=== PATIENT | female | born 1940 | race Caucasian/White ===

== ENCOUNTER 2019-02-25 14:14 | Emergency (ER) | payer MEDICARE ==
[2019-02-25] MEDS ORDERED: KETOROLAC TROMETHAMINE 30 MG/1ML VIAL IV ONE (14:30)
[2019-02-25] MEDS ORDERED: ORPHENADRINE CITRATE 60 MG/2 ML ML IV ONE (14:30)
--- NOTE | 2019-02-25 14:42 | ED Physician Documentation ---
General Adult - HISTORIAN Historian: patient - HPI Stated Complaint: leg pain Chief Complaint: General Adult Additional Information: Patient presents to ED via EMS with worsening right leg/hip pain. Patient had a fall on 02/05/19. Xrays at that time showed degenerative changes. Patient was admitted for hyperglycemia during that ER visit. She has since been seen by Dr. Randolph who recommended total hip replacement for pain control but did not give pain medications secondary to increase fall risk. Today patient states her right hip pain was so intense she could not walk so she called EMS. Upon arrival patient was very agitated, verbally abusive and gave very little information. Once daughter arrived more information was gathered. Onset: days ago (21) Timing: still present, worse Severity: severe - ROS CONST: denies: fever EYES/ENT: none CVS/RESP: denies: chest pain, shortness of breath GI/: denies: vomiting, nausea MS/SKIN/LYMPH: leg pain. denies: calf pain, leg swelling, back pain NEURO/PSYCH: denies: headache - PAST HX Past History: COPD, hypertension Other History: diabetes Type 2 Surgeries/Procedures: other (right femoral karlene) - SOCIAL HX Smoking History: non-smoker Alcohol Use: none Drug Use: none - FAMILY HX Family History: No - VITAL SIGNS Vital Signs: Vital Signs Temp Pulse Resp BP Pulse Ox 98.8 F 98 H 207/74 99 02/25/19 14:20 02/25/19 14:20 02/25/19 14:20 02/25/19 14:20 02/25/19 14:20 - REVIEWED ASSESSMENTS Nursing Assessment Reviewed: Yes Vitals Reviewed: Yes <Maddie Delatorre - Last Filed: 02/25/19 14:53> - VITAL SIGNS Vital Signs: Vital Signs Temp Pulse Resp BP Pulse Ox 98.8 F 98 H 207/74 99 02/25/19 14:20 02/25/19 14:20 02/25/19 14:20 02/25/19 14:20 02/25/19 14:20 <Luan Cobb - Last Filed: 02/25/19 15:48> - PAST HX Allergies/Adverse Reactions: Allergies Allergy/AdvReac Type Severity Reaction Status Date / Time No Known Allergies Allergy Verified 02/25/19 14:24 Home Medications: Ambulatory Orders Medication Instructions Recorded Lisinopril 10 mg PO DAILY 02/25/19 Potassium Chloride [Klor-Con] 20 meq PO DAILY 02/25/19 metFORMIN HCl [Glucophage] 500 mg PO RT2017 02/25/19 Progress - Progress Progress: [address] Cobb, will transfer care to him. CT pelvis and labs pending. <Maddie Delatorre - Last Filed: 02/25/19 14:53> - Progress Progress: CT R hip: These are displaced right femoral neck fracture. 1 centimeter displacement is present. 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 Aortoiliac vascular calcification is present. Lumbar spondylosis the is present in the inferior lumbar spine. Internal fixation is present in the femur Impression: displaced right femoral neck fracture. Toradol 30 mg IV earlier in ER. Zofran 4 mg IV Morpine 4 mg IV Transfer to [facility]. Dr. Baorn. <Luan Cobb - Last Filed: 02/25/19 15:48> ED Results Lab/Radiology - Orders Orders: ED Orders Category Date Time Status Place IV Lock 1T Care 02/25/19 14:[address] PELVIS W/O CONTRAST Stat Exams 02/25/19 Ordered CBC/PLATELET/DIFF Routine Lab 02/25/19 Ordered CMP Routine Lab 02/25/19 Ordered Ketorolac Tromethamine [Toradol] Med 02/25/19 14:30 Discontinued 30 mg IV NOW ONE Orphenadrine Citrate [Norflex] Med 02/25/19 14:30 Discontinued 60 mg IV NOW ONE <Maddie Delatorre - Last Filed: 02/25/19 14:53> - Orders Orders: ED Orders Category Date Time Status Place IV Lock 1T Care 02/25/19 14:[address] PELVIS W/O CONTRAST Stat Exams 02/25/19 Completed CBC/PLATELET/DIFF Routine Lab 02/25/19 Ordered CMP Routine Lab 02/25/19 Ordered Ketorolac Tromethamine [Toradol] Med 02/25/19 14:30 Discontinued 30 mg IV NOW ONE Orphenadrine Citrate [Norflex] Med 02/25/19 14:30 Discontinued 60 mg IV NOW ONE <Luan Cobb - Last Filed: 02/25/19 15:48> General Adult Physical Exam - PHYSICAL EXAM GENERAL APPEARANCE: no distress EENT: SUSU NECK: supple RESPIRATORY: no resp distress, breath sounds normal CVS: reg rate & rhythm, heart sounds normal ABDOMEN: soft, non-tender BACK: normal inspection SKIN: warm/dry EXTREMITIES: edema (trace lower extremity edema bilaterally), tenderness (right groin, right lateral thigh) NEURO: oriented X3, motor nml, mood/affect nml <Maddie Delatorre - Last Filed: 02/25/19 14:53> - PHYSICAL EXAM EXTREMITIES: other (R lower extremity shortening) <Luan Cobb - Last Filed: 02/25/19 15:48> Discharge <Maddie Delatorre - Last Filed: 02/25/19 14:53> Decision to Admit: [id number] Decision Time: 15:41 <Luan Cobb - Last Filed: 02/25/19 15:48> Clincal Impression: R femoral neck fracture Referrals: Primary Doctor,No [Primary Care Provider] - Condition: Stable Disposition: XFER [facility]
--- NOTE | 2019-02-25 15:12 | Diagnostic Imaging Report ---
PATIENT MR#: [id number] PATIENT PATIENT NAME: CINDY GIRALDO DATE OF : 1940 REFERRING PHYSICIAN: Maddie Lewis EXAM DATE: 02/25/2019 ACCESSION NUMBER: [id number] EXAM DESCRIPTION: CT PELVIS W/O CONTRAST CT of the bony pelvis Clinical history right hip pain Comparison: Radiographs from February 06, 2019 Technique: Helical axial CT of the right right hip was performed with multiplanar reconstructions. Findings: These are displaced right femoral neck fracture. 1 centimeter displacement is present. Ther e is degenerative arthritis the hips and sacroiliac joints. Aortoiliac vascular calcification is present. Lumbar spondy losis the is present in the inferior lumbar spine. Internal fixation is present in the femur Impression displaced right femoral neck fracture Read by: Dr. Ludwig Trinidad Transcribed by: Transcribed Date: Electronically signed by: Dr. Ludwig Trinidad Date signed: 02/25/2019 3:11:55 PM
[2019-02-25] MEDS ORDERED: ONDANSETRON HCL/PF 4 MG/ 2ML VIAL ONE (15:13)
[2019-02-25] MEDS ORDERED: MORPHINE SULFATE 4 MG/ML VIAL ONE (15:13)
[2019-02-25] MEDS ORDERED: ONDANSETRON HCL/PF 4 MG/ 2ML VIAL IVP ONE (15:15)
[2019-02-25] MEDS ORDERED: MORPHINE SULFATE 4 MG/ML VIAL IV ONE (15:16)
[2019-02-25 15:35] LABS: BASOPHILS % 0.3 % (0.0-1.5); NEUTROPHILS # 4.7 # k/uL (1.4-7.7)
[2019-02-25 15:40] LABS: eGFR (Non-African) > 60
[2019-02-25 16:04] VITALS: BP 171/67
== END 2019-02-25 16:04 | disposition short-term general hospital (02) ==
LOC: ED 14:14
DX: S72.001A Fracture of unspecified part of neck of right femur, initial encounter for closed fracture (principal); W19.XXXA Unspecified fall, initial encounter
CPT/HCPCS: 72192; 80053; 85025; 96374; 96375; 99283; 99284; J1885; J2270; J2360; J2405; S1016

== ENCOUNTER 2019-04-01 11:10 | Emergency (ER) | payer MEDICARE ==
--- NOTE | 2019-04-01 11:49 | ED Physician Documentation ---
Upper Respiratory Symptoms - HISTORIAN Historian: patient - HPI Stated Complaint: CC, fever Chief Complaint: Cough/ Upper Respiratory Additional Information: Patient presents to ED with a 10 day history of cough and congestion, spiking a fever last night of 102.0. Dr. Randolph started patient on Azithromycin on and has 3 doses without improvement. Daughter reports patient's blood sugars have been trending up over the past 2 days, usually around 130, now running at 200. Onset: days ago (10) Duration: intermittent episodes Context: denies: recent foreign travel Severity: moderate Associated Symptoms: fever (102.0), productive cough, shortness of breath - ROS CONST/EYES: weakness CVS/RESP: shortness of breath LYMPH: denies: ankle swelling GI/: denies: abdominal pain, vomiting, nausea NEURO/PSYCH: denies: dizziness MS/SKIN: denies: muscle aches - PAST HX Lung Disease: COPD PE Risk Factors: hypertension Other History: diabetes Type 2 Allergies/Adverse Reactions: Allergies Allergy/AdvReac Type Severity Reaction Status Date / Time No Known Allergies Allergy Verified 04/01/19 11:38 Home Medications: Ambulatory Orders Medication Instructions Recorded Lisinopril 10 mg PO DAILY 02/25/19 Potassium Chloride [Klor-Con] 20 meq PO DAILY 02/25/19 metFORMIN HCl [Glucophage] 500 mg PO [id number] 02/25/19 Azithromycin 250 mg PO DAILY 04/01/19 Hydrocodone/Acetaminophen 1 tab PO Q6H PRN 04/01/19 [Hydrocodone-Acetamin 5-325 mg] - SOCIAL HX Smoking History: non-smoker Alcohol Use: none Drug Use: none - FAMILY HX Family History: none - VITAL SIGNS Vital Signs: Vital Signs Temp Pulse Resp BP Pulse Ox 99.8 F H 113 H 24 136/57 95 04/01/19 11:10 04/01/19 11:10 04/01/19 11:10 04/01/19 11:10 04/01/19 11:10 - REVIEWED ASSESSMENTS Nursing Assessment Reviewed: Yes Vitals Reviewed: Yes ED Results Lab/Radiology - Lab Results Lab Results: Lab Results 04/01/19 11:50 Influenza A (Rapid) Negative (NEGATIVE) Influenza B (Rapid) Negative (NEGATIVE) Influenza A/B - Negative. - Radiology Radiology Impressions: Report Submission Date: Apr 01, 2019 12:40:53 PM TELEGRAPH EDITOR Patient Study Name: CINDY GIRALDO Date: Apr 01, 2019 11:58:50 AM TELEGRAPH EDITOR Modality Type: DX Gender: F Description: CHEST 2VIEW : 38 Institution: [facility] Physician: LADI REYNOLDS Pa and lateral chest Clinical history : cough and congestion Comparison February 06, 2019 Technique pa and lateral upright Findings: Interstitial infiltrate present in the lungs greatest at the bases. Pulmonary vascular congestion increased. Cardiomegaly and aortic atherosclerosis the same. Lung carr are hyperinflated. There is thoracic spondylosis.. Impression: Congestive heart failure and interstitial edema Electronically signed on Apr 01, 2019 12:40:53 PM TELEGRAPH EDITOR by: Ludwig Trinidad - Orders Orders: ED Orders Category Date Time Status Place IV Lock 1T Care 04/01/19 13:03 Active CHEST 2VIEW [RAD] Stat Exams 04/01/19 Completed INFLUENZA A&B Stat Lab 04/01/19 11:50 Completed 0.9 % Sodium Chloride [Normal Saline] 100 ml Med 04/01/19 13:10 Discontinued IV .STK-MED Furosemide [Lasix] Med 04/01/19 13:03 Discontinued 40 mg IVP NOW ONE Ipratropium/Albuterol Sulfate [Duoneb] Med 04/01/19 11:47 Discontinued 3 ml NEB NOW ONE cefTRIAXone SODIUM [Rocephin] Med 04/01/19 13:10 Discontinued 2 gm .ROUTE .STK-MED ONE cefTRIAXone SODIUM [Rocephin] 2 gm Med 04/01/19 13:03 Discontinued 0.9 % Sodium Chloride [Normal Saline] 100 ml IV NOW Upper Respiratory Symptoms - EXAM General Appearance: no acute distress, alert EENT: nml ENT inspection Neck: supple Respiratory: no resp. distress, rhonchi (bilaterally) Abdomen: non-tender, nml bowel sounds CVS: reg rate & rhythm, heart sounds normal Skin: color nml, no rash, warm,dry Extremities: non-tender, edema Neuro/Psych: oriented x3, mood/affect nml Discharge Clincal Impression: Pneumonia Qualifiers: Pneumonia type: due to other aerobic Gram-negative bacteria Laterality: bilateral Lung location: lower lobe of lung Qualified Code(s): J15.6 - Pneumonia due to other Gram-negative bacteria Pulmonary edema Qualifiers: Chronicity: acute Qualified Code(s): J81.0 - Acute pulmonary edema Referrals: Primary Doctor,No [REFERRING] - 2 Days Additional Instructions: 1. Start Levaquin tomorrow. Take until gone. 2. Take Lasix daily for next 7 days 3. Tesslon 1-2 caps every 8 hours as needed for cough 4. Follow up with Dr. Randolph within 1 week. Discuss continuing Lasix, possibly repeat chest xray 5. Return to ER for new or worsening symptoms Condition: Stable Disposition: 01 HOME, SELF-CARE Decision to Admit: NO Date of Decison to Admit: 04/01/19 Decision Time: 13:53
[2019-04-01] MEDS: IPRATROPIUM/ALBUTEROL SULFATE 3 ML AMPUL.NEB NEB ONE (11:52)
--- NOTE | 2019-04-01 12:46 | Diagnostic Imaging Report ---
PATIENT MR#: [id number] PATIENT PATIENT NAME: CINDY GIRALDO DATE OF : 1940 REFERRING PHYSICIAN: Maddie Lewis EXAM DATE: 04/01/2019 ACCESSION NUMBER: [id number] EXAM DESCRIPTION: CHEST 2VIEW Pa and lateral chest Clinical history : cough and congestion Comparison February 06, 2019 Technique pa and lateral upright Findings: Interstitial infiltrate present in the lungs greatest at the bases. Pulmonary vascular gab estion increased. Cardiomegaly and aortic atherosclerosis the same. Lung carr are hyperinflated. There is thoracic s pondylosis.. Impression: Congestive heart failure and interstitial edema Read by: Dr. Ludwig Trinidad Transcribed by: Transcribed Date: Electronically signed by: Dr. Ludwig Trinidad Date signed: 04/01/2019 12:45:37 PM
[2019-04-01] MEDS: 0.9 % SODIUM CHLORIDE 100 ML IV ONE (13:22)
[2019-04-01] MEDS: cefTRIAXone SODIUM 1 GM INJ ONE (13:22)
[2019-04-01] MEDS: FUROSEMIDE 40 MG/4 ML VIAL IVP ONE (13:29)
[2019-04-01] MEDS: cefTRIAXone SODIUM 2 GM in 0.9 % SODIUM CHLORIDE 100 ML IV ONE (13:29)
[2019-04-01 14:22] VITALS: BP 133/49
== END 2019-04-01 14:18 | disposition home or self-care (01) ==
LOC: ED 11:10
DX: J15.6 Pneumonia due to other Gram-negative bacteria (principal); J81.0 Acute pulmonary edema
CPT/HCPCS: 71046; 87400; 94640; 96374; 99282; 99284; J0696; J1940; S1016

== ENCOUNTER 2019-04-06 10:19 | Outpatient (CLI) | payer MEDICARE ==
[2019-04-06 11:19] LABS: eGFR (Non-African) > 60
--- NOTE | 2019-04-06 19:39 | Diagnostic Imaging Report ---
PATIENT MR#: [id number] PATIENT PATIENT NAME: CINDY GIRALDO DATE OF : 1940 REFERRING PHYSICIAN: Justin Randolph EXAM DATE: 04/06/2019 ACCESSION NUMBER: [id number] EXAM DESCRIPTION: CHEST 2VIEW HISTORY: RECHECK CHF. COMPARISON: April 01, 2019. CHEST RADIOGRAPH, FRONTAL AND LATERAL: Upper mediastinum: Not widened. Mild atherosclerotic calcification of the aortic arch. Heart: No cardiomegaly. Lungs: There has been interval improvement of reticular opacities at the lung bases. No lobar infiltr ate, pulmonary edema, pneumothorax or significant effusion. Skeleton: Thoracic spondylosis. IMPRESSION: Interval improvement of previously seen mild interstitial pulmonary edema. Read by: Dr. Adarsh Logan Transcribed by: Adarsh Logan Transcribed Date: 04/06/2019 7:39:06 PM Electronically signed by: Dr. Adarsh Logan Date signed: 04/06/2019 7:39:06 PM
== END 2019-04-06 10:24 ==
LOC: LAB 10:19
PROVIDERS: ATTEND Family Medicine
DX: I50.9 Heart failure, unspecified (principal)
CPT/HCPCS: 36415; 80053; 83880